=== PATIENT | female | born 1970 | race Caucasian/White ===

== ENCOUNTER 2024-04-18 15:58 | Observation (INO) | payer BC ==
[2024-04-18 16:08] VITALS: BMI 41.5
[2024-04-18] MEDS ORDERED: ACETAMINOPHEN 325 MG TABLET (FP) PO ONE (16:52)
[2024-04-18] MEDS ORDERED: ACETAMINOPHEN 500 MG TABLET (FP) ONE (17:27)
[2024-04-18] MEDS: ACETAMINOPHEN 500 MG TABLET (FP) PO ONE (17:30)
[2024-04-18 17:34] LABS: BASO % 0.6 % (0-2.0); EOS % 1.1 % (0-4.5); HEMATOCRIT 36.5 % (32.4-45.2); HEMOGLOBIN 12.1 GM/dL (10.7-15.3); LYMPH % 33.7 % (8-40); MCHC 33.3 g/dl (32.0-36.0); MEAN CELL VOLUME 87.1 fl (80-96); MEAN PLT VOLUME 8.2 fl (7.5-11.1); MONO % 7.5 % (3.8-10.2); NEUT % 57.1 % (42.8-82.8); PLATELET COUNT 153 10^3/uL (134-434); RBC 4.19 M/mm3 (3.60-5.2); RDW 12.8 % (11.6-15.6); WHITE BLOOD COUNT 4.8 K/mm3 (4.0-10.0)
[2024-04-18 17:41] LABS: INR 1.02 (0.83-1.09); PROTHROMBIN TIME (PATIENT) 11.1 SEC (9.7-13.0)
[2024-04-18 17:43] LABS: ACTIVATED PTT 29.4 SECONDS (25.2-36.5)
[2024-04-18 17:49] LABS: POTASSIUM 3.9 mmol/L (3.5-5.1)
[2024-04-18 17:51] LABS: CALCIUM 8.5 mg/dL (8.5-10.1)
[2024-04-18 17:52] LABS: ALBUMIN 3.3 g/dl (3.4-5.0); BLOOD UREA NITROGEN 22.4 mg/dL (7-18)
[2024-04-18 17:55] LABS: CREATININE 1.3 mg/dL (0.55-1.3)
[2024-04-18 17:56] LABS: BILIRUBIN,TOTAL 0.4 mg/dL (0.2-1)
[2024-04-18 17:57] LABS: TOT PROT 6.6 g/dl (6.4-8.2)
[2024-04-18] MEDS: ACETAMINOPHEN 325 MG TABLET (FP) PO PRN (23:20)
[2024-04-19] MEDS ORDERED: PROPOFOL 20 ML ONE ×2 (07:36→07:47)
[2024-04-19] MEDS ORDERED: MIDAZOLAM HCL 2 MG/2 ML SINGLE DOSE VIAL ONE (07:36)
[2024-04-19 08:00] LABS: HEMATOCRIT 33.6 % (32.4-45.2); HEMOGLOBIN 11.4 GM/dL (10.7-15.3); MCH 29.5 pg (25.7-33.7); MCHC 33.8 g/dl (32.0-36.0); MEAN CELL VOLUME 87.4 fl (80-96); MEAN PLT VOLUME 8.2 fl (7.5-11.1); PLATELET COUNT 139 10^3/uL (134-434); RBC 3.85 M/mm3 (3.60-5.2); RDW 12.3 % (11.6-15.6); WHITE BLOOD COUNT 4.6 K/mm3 (4.0-10.0)
[2024-04-19 08:15] LABS: POTASSIUM 3.9 mmol/L (3.5-5.1)
[2024-04-19 08:16] LABS: CALCIUM 8.4 mg/dL (8.5-10.1)
[2024-04-19 08:17] LABS: BLOOD UREA NITROGEN 26.1 mg/dL (7-18)
[2024-04-19 08:20] LABS: CREATININE 1.4 mg/dL (0.55-1.3)
[2024-04-19 08:22] LABS: BILIRUBIN,TOTAL 0.4 mg/dL (0.2-1); TOT PROT 5.8 g/dl (6.4-8.2)
[2024-04-19] MEDS ORDERED: ACETAMINOPHEN 325 MG TABLET (FP) PO PRN (08:54)
[2024-04-19 09:46] VITALS: RESP 18
[2024-04-19] MEDS: LACTATED RINGERS SOLUTION 1,000 ML IV SCH (11:17)
[2024-04-19] MEDS: ACETAMINOPHEN 325 MG TABLET (FP) PO PRN (11:27)
[2024-04-19] MEDS: traMADol HCL 50 MG TABLET PO PRN (14:18)
[2024-04-19 18:05] VITALS: BP 148/71; PULSE 67; TEMP 98.1
[2024-04-26 13:10] LABS: CA OXALATE MONOHYDR. 100 % (.); SIZE 2x1 mm (.); WEIGHT 6 mg (.)
== END 2024-04-19 18:49 | disposition home or self-care (01) ==
LOC: JER 15:58 → JERBED 17:44 → J7W 20:39
PROVIDERS: ADMIT Student in an Organized Health Care Education/Training Program; ATTEND Physician Assistant
PROC: 0TC68ZZ Extirpation of Matter from Right Ureter, Via Natural or Artificial Opening Endoscopic (ICD-10-PCS; principal; 2024-04-18)
PROC: 0T768DZ Dilation of Right Ureter with Intraluminal Device, Via Natural or Artificial Opening Endoscopic (ICD-10-PCS; 2024-04-18)
PROC: BT1DZZZ Fluoroscopy of Right Kidney, Ureter and Bladder (ICD-10-PCS; 2024-04-18)
DX: N20.2 Calculus of kidney with calculus of ureter (principal); E66.9 Obesity, unspecified; R10.31 Right lower quadrant pain
CPT/HCPCS: 0241U-QW; 36415; 76000-TC-FY; 80053; 82360; 85025; 85027; 85610; 85730; 86850; 86900; 86901; 88300-TC; 93005; 93010; 94760; 96361; 96374; 99285-25; C1758; G0378